=== PATIENT | female | born 1970 | race Caucasian/White ===

== ENCOUNTER 2016-08-25 08:56 | Day surgery (SDC) | payer OTHER ==
[2016-08-25] MEDS ORDERED: LACTATED RINGERS 1,000 ML ONE (09:07)
[2016-08-25] MEDS ORDERED: IV START KIT ONE (09:08)
[2016-08-25] MEDS ORDERED: FENTANYL 100 MCG/2 ML VIAL ONE (09:13)
[2016-08-25] MEDS ORDERED: MIDAZOLAM HCL 1 MG/ML 2ML VIAL ONE (09:13)
[2016-08-25] MEDS ORDERED: LACTATED RINGERS 1,000 ML IV SCH ×3 (09:19→13:25)
[2016-08-25] MEDS ORDERED: CEFAZOLIN SODIUM 2 GRAM PREMIX 2 G in Premix (D5W) 100 ml 1 EACH IV PRN (09:19)
[2016-08-25] MEDS ORDERED: LIDOCAINE 1% 2 ML VIAL ID PRN (09:19)
[2016-08-25] MEDS ORDERED: ONDANSETRON 4 MG/2ML 2 ML VIAL ONE (10:05)
[2016-08-25] MEDS ORDERED: LIDOCAINE 2% (PRES FREE) 5 ML VIAL ONE (10:05)
[2016-08-25] MEDS ORDERED: DEXAMETHASONE SOD PHOS 4 MG/1 ML VIAL ONE (10:05)
[2016-08-25] MEDS ORDERED: PROPOFOL 20 ML IV ONE (10:05)
[2016-08-25] MEDS ORDERED: LIDOCAINE 1% (PRES FREE) 30 ML VIAL ONE (10:46)
[2016-08-25] MEDS ORDERED: BUPIVACAINE 0.5% W/EPI SDV 30 ML VIAL ONE (10:46)
[2016-08-25] MEDS ORDERED: HYDROMORPHONE HCL 1 MG/ML SYRINGE IV PRN ×2 (11:15→13:25)
[2016-08-25] MEDS ORDERED: MEPERIDINE 25 MG/ML SYRINGE IV PRN (11:15)
[2016-08-25] MEDS ORDERED: ONDANSETRON 4 MG/2ML 2 ML VIAL IV PRN ×2 (11:15→13:25)
[2016-08-25] MEDS ORDERED: HYDRALAZINE HCL 20 MG/1 ML VIAL IV PRN (11:15)
[2016-08-25] MEDS ORDERED: PROMETHAZINE HCL 25 MG/ML VIAL IM PRN (11:15)
[2016-08-25] MEDS ORDERED: FENTANYL 100 MCG/2 ML VIAL IV PRN (11:15)
[2016-08-25] MEDS ORDERED: NALOXONE HCL 0.4 MG/ML VIAL IV PRN (11:15)
[2016-08-25] MEDS ORDERED: LABETALOL HCL 5 MG/ML 20ML VIAL IV PRN (11:15)
[2016-08-25] MEDS ORDERED: ATROPINE SULFATE 0.4 MG/1 ML VIAL IV PRN (11:15)
[2016-08-25] MEDS ORDERED: EPHEDRINE SULFATE UD SYR 25 MG 25 MG/5 ML SYRINGE IV ONE (11:18)
[2016-08-25] MEDS ORDERED: KETOROLAC TROMETHAMINE 30 MG/ML 1 ML VIAL ONE (11:32)
--- NOTE | 2016-08-25 11:53 | PCMBPN ---
Brief Post Op Note: Date of Procedure: 08/25/16 Preoperative Diagnosis: 1. Right breast lump Postoperative Diagnosis: 1. Same Procedure: Right breast lumpectomy Surgeon: Irina Hankins MD Assist:Nusrat Cruz Anesthesia: GETA Findings: see dictation Condition: stable Complications: none IV Fluids: see anesthesia report Urine Output: not recorded Estimated Blood Loss: 25 mls Tourniquet Time: N/A Specimens: right breast tissue Implants: n/a Drains: [N/A]
[2016-08-25] MEDS ORDERED: OXYCODONE/ACETAMINOPHEN 5/325 MG TABLET PO PRN (13:25)
--- NOTE | 2016-08-25 15:10 | OP ---
ISABELA NUÑEZ [id number] : 1970 DATE OF SERVICE: August 25, 2016 PREOPERATIVE DIAGNOSIS: Right breast lump. POSTOPERATIVE DIAGNOSIS: Right breast lump. PROCEDURE PERFORMED: RIGHT BREAST LUMPECTOMY. SURGEON: Irina Hankins M.D. POTTERY MACHINE OPERATOR: Justen Billingsley ANESTHESIA: General. FINDINGS: Right breast lump at the 1 o'clock position actually ended up being two lumps at that same location right next to each other. TECHNIQUE: The patient was brought back to the operating room and placed under general anesthesia. The right breast was prepped and draped in sterile surgical fashion. Local anesthetic was placed next to the areola and next to the masses. A #15 blade scalpel was used to make a periareolar incision. Then electrocautery was used to cut through the subcutaneous tissue the breast tissue from the skin as the masses were fairly shallow. I tunneled up to where the masses were at the 12 to 1 o'clock position and then removed the tissue surrounding the masses. Once it was removed, I marked the mass with marking stitches and then sent it as permanent specimen. I used electrocautery for hemostasis, irrigated the cavity with warm water, made sure everything was nice and dry. I looked at the cavity, there was really nothing to close and bring together to reduce the cavity itself, but it looked like the breast tissue was going to look fine after surgery and did not leave that much of a defect. I then closed the deep dermis with #3-0 Vicryl and closed the skin with #4-0 Monocryl. SteriStrips were applied and the patient was awakened and returned to recovery room in stable condition. All needle, instrument and sponge counts were correct at the end of the case. Cc: Irina Hankins M.D.
--- NOTE | 2016-08-27 10:11 | SURGPATH ---
[facility] [address] [place] [id number] Patient Name: ISABELA UNÑEZ MR#: [id number] : 1970 Gender: F Specimen #: [id number] Collected: 08/25/2016 Received: 08/26/2016 Reported: 08/27/2016 Submitting Phys: VINCENT KANG Copy To Phys: EWELINA KEE [facility] Clinical History / Pre-Operative Diagnosis: Right breast mass Specimen Source / Surgical Procedure Performed: Right breast biopsy (short-superior, long-lateral, double-anterior) Intraoperative Consult: Time intact specimen was in formalin, 24 hours; time cut specimen was in formalin, seven hours Interpretation: BREAST, RIGHT, EXCISIONAL BIOPSY: - BENIGN FIBROCYSTIC CHANGE - RADIAL SCAR, STROMAL FIBROSIS, AND INTRADUCTAL HYPERPLASIA - NEGATIVE FOR ATYPIA OR MALIGNANCY Electronically Signed Out Kolby Schreiber M.D. Gross Description: The specimen is received in a formalin filled container labeled with the patient's name and "right breast biopsy". An oriented biopsy of yellow-tapia, fibrofatty tissue has a short stitch superior, a long stitch is lateral, and a double stitch anterior. The 8 g biopsy is 3.5 x 2.5 x 2.5 cm. The surgical margins are inked: Superior-blue, lateral-yellow, inferior-green, medial-red, anterior-orange, posterior-black. Sectioning shows yellow-tapia, fibroglandular and fatty tissue throughout. A discrete mass or nodule is not grossly appreciated. All submitted from superior to inferior. A-entire slice #1, superior end B-entire slice #2 C-entire slice #3 D-entire slice #4 E-entire slice #5 F-entire slice #6 G-entire slice #7, inferior end Reuben Pineda Microscopic Description: Benign breast tissue shows mild fibrocystic change with cysts stromal fibrosis. There are foci of intraductal hyperplasia. A small radial scar is seen. There is no atypia or malignancy. A specific mass lesion is not appreciated. 1: [id number] N60.89
== END 2016-08-25 14:30 | disposition home or self-care (01) ==
LOC: SDC 08:56
PROVIDERS: ATTEND Surgery
PROC: 0HBT0ZZ Excision of Right Breast, Open Approach (ICD-10-PCS; principal; 2016-08-25)
DX: N60.89 Other benign mammary dysplasias of unspecified breast (principal); Z80.3 Family history of malignant neoplasm of breast; D25.9 Leiomyoma of uterus, unspecified; J30.9 Allergic rhinitis, unspecified
CPT/HCPCS: 19301; J3010; J1100; J1885; J2250; J2001; J2405; J7120